=== PATIENT | female | born 1960 | race American Indian/Alaskan Native ===

== ENCOUNTER 2021-11-11 14:49 | Emergency (ER) | payer MEDICARE, OTHER ==
[2021-11-11 16:09] VITALS: BP 212/120
== END 2021-11-12 11:06 | disposition left against medical advice (07) ==
LOC: ED 14:49
DX: R31.9 Hematuria, unspecified (principal); Z53.21 Procedure and treatment not carried out due to patient leaving prior to being seen by health care provider